=== PATIENT | female | born 1985 ===

== ENCOUNTER 2019-12-08 01:03 | Inpatient (IN) | payer OTHER, MEDICAID ==
[2019-12-08] MEDS ORDERED: TERBUTALINE 1 MG/1 ML INJ IVP PRN (01:44)
[2019-12-08] MEDS ORDERED: PROMETHAZINE 25 MG TAB PO PRN (01:44)
[2019-12-08] MEDS ORDERED: ePHEDrine SULFATE 50 MG/1 ML INJ IV PRN ×2 (01:44→15:49)
[2019-12-08] MEDS ORDERED: TERBUTALINE 1 MG/1 ML INJ SUB-Q PRN (01:44)
[2019-12-08] MEDS ORDERED: LIDOCAINE (2%) 20 MG/1 ML VIAL 20 ML MDV INFILTRATI ONE (01:44)
[2019-12-08] MEDS ORDERED: OXYTOCIN 20 UNIT/1000ML DRIP 20 UNITS/1,000 ML BAG IV SCH (02:00)
[2019-12-08] MEDS: BUTORPHANOL 2 MG/1 ML INJ IV PRN ×4 (02:58→13:57)
[2019-12-08 03:09] LABS: Hematocrit 29.6 % (30.3-42.9); Hemoglobin 9.8 gm/dl (10.1-14.3); Mean Corpuscular HGB Conc 33 % (30-34); Mean Corpuscular Volume 82 fl (79-97); Platelet Count 323 K/mm3 (140-440); Red Cell Distribution Width 13.7 % (13.2-15.2)
[2019-12-08 04:07] LABS: Amphetamine Screen,Urine PRESUMPTIVE NEGATIVE; Benzodiazepines Screen,Urine PRESUMPTIVE NEGATIVE; Cannabinoid Screen,Urine PRESUMPTIVE NEGATIVE; Cocaine Screen,Urine PRESUMPTIVE NEGATIVE; Methadone Screen,Urine PRESUMPTIVE NEGATIVE; Opiate Screen,Urine PRESUMPTIVE NEGATIVE
--- NOTE | 2019-12-08 04:19 | History and Physical Report ---
History of Present Illness Date of examination: 12/08/19 Date of admission: 12/08/19 01:45 History of present illness: Present to L&D with c/o regular contractions initial cerival exam 3.5 cm. P atient states she received uncomplicated care from Dr Street. Patient was admitted and now her cervix as advanced to 5 cm. Past History Past Medical History: no pertinent history Past Surgical History: [employer]/uterine surgery (Right salpingectomy "due to blocked tube and pain") Social history: full code - Obstetrical History : 1 Para: 0 Hx # Term Pregnancies: 0 Number of Pregnancies: 0 Spontaneous Abortions: 0 Induced : 0 Number of Living Children: 0 Medications and Allergies Allergies Allergy/AdvReac Type Severity Reaction Status Date / Time No Known Allergies Allergy Verified 12/08/19 01:59 Active Meds: Active Medications Butorphanol Tartrate (Stadol) 2 mg IV Q2H PRN PRN Reason: Pain , Severe (7-10) Last Admin: 12/08/19 02:58 Dose: 2 mg Documented by: Ephedrine Sulfate (Ephedrine Sulfate) 10 mg IV Q2M PRN PRN Reason: Hypotension Oxytocin/Sodium Chloride (Pitocin/Ns 20 Unit/1000ml Drip) 20 units in 1,000 mls @ 125 mls/hr IV DIRECT BOBY Lactated Ringer's (Lactated Ringers) 1,000 mls @ 125 mls/hr IV DIRECT BOBY Cefazolin Sodium (Ancef/Ns 1 Gm/50 Ml) 1 gm in 50 mls @ 100 mls/hr IV Q8H BOBY; Protocol Promethazine HCl (Phenergan) 25 mg PO Q6H PRN PRN Reason: Nausea And Vomiting Terbutaline Sulfate (Brethine) 0.25 mg SUB-Q ONCE PRN PRN Reason: Hyperstimulation/Hypertonicity Terbutaline Sulfate (Brethine) 0.25 mg IVP ONCE PRN PRN Reason: Hyperstimulation/Hypertonicity Review of Systems All systems: negative - Vital Signs Vital signs: Vital Signs Temp Resp 98.6 F 16 12/08/19 01:10 12/08/19 01:10 Temp Pulse Resp BP Pulse Ox 100.1 F H 100 H 20 147/92 98 12/08/19 02:07 12/08/19 04:12 12/08/19 03:45 12/08/19 03:15 12/08/19 04:12 - Physical Exam Breasts: Positive: deferred Cardiovascular: Regular rate Lungs: Positive: Normal air movement Abdomen: Positive: normal appearance, soft Cervix: Positive: other (Per RN) - Obstetrical FHR: category 1 Uterine Contraction Monitor Mode: External Uterine Contraction Pattern: Regular Uterine Tone Measurement Phase: Contraction Uterine Contraction Intensity: Strong/Firm Results Result Diagrams: 12/08/19 02:45 Abnormal lab results 12/08/19 Range/Units 02:45 WBC 19.9 H (4.5-11.0) K/mm3 RBC 3.60 L (3.65-5.03) M/mm3 Hgb 9.8 L (10.1-14.3) gm/dl Hct 29.6 L (30.3-42.9) % MCH 27 L (28-32) pg All other labs normal. Assessment and Plan - Patient Problems (1) Active labor at term Current Visit: Yes Status: Acute Plan to address problem: Patient submitted to follow routine labor and delivery protocol (2) Elevated blood pressure affecting in third trimester, antepartum Current Visit: Yes Status: Acute Plan to address problem: Patient now with elevated blood pressures possibly secondary to labor pain but due to diastolics over 110 will start magnesium sulfate and obtain PIH labs.
[2019-12-08] MEDS ORDERED: MAGNESIUM SULFATE 4 GM/100 ML BAG IV ONE (07:30)
[2019-12-08] MEDS: LACTATED RINGERS 1,000 ML IV SCH ×2 (07:43→14:00)
--- NOTE | 2019-12-08 07:49 | Progress Note ---
Assessment and Plan patient sitting upright, breathing through ctx. she denies need for epidural at this time. Discussed pros/cons AROM, pt considering options at this time. discussed elevations in blood pressure and need for additional lab work and mag sulfate. All questions addressed. requested patient sign a release for records, patient states she had her records sent to [facility] from Stefan [facility]. Pt states she has been seen twice by [facility] and they are awaiting records from [place]. explained to patient that [facility] has providers at this hospital and we will transfer her care from our services to theirs. Dr. hair made aware. Called [facility] covering [facility], report given. - Patient Problems (1) 38 weeks gestation of Current Visit: Yes Status: Acute (2) Elevated blood pressure affecting in third trimester, antepartum Current Visit: Yes Status: Acute Subjective - Subjective Date of service: 12/08/19 Principal diagnosis: 38+ weeks, laboring Patient reports: movement normal, contractions, no loss of fluid, no vaginal bleeding, no other (denies OCONNOR, visual changes or epigastric pain) Objective - Vital Signs Vital Signs: Vital Signs - 12hr 12/08/19 12/08/19 12/08/19 01:10 02:07 02:58 Temperature 98.6 F 100.1 F H Pulse Rate Respiratory 16 18 18 Rate Blood Pressure Blood Pressure [Left] O2 Sat by Pulse Oximetry 12/08/19 12/08/19 12/08/19 03:03 03:08 03:13 Temperature Pulse Rate 125 H 121 H 106 H Respiratory Rate Blood Pressure Blood Pressure [Left] O2 Sat by Pulse 98 97 95 Oximetry 12/08/19 12/08/19 12/08/19 03:15 03:18 03:19 Temperature Pulse Rate 112 H 107 H 108 H Respiratory Rate Blood Pressure 147/92 Blood Pressure [Left] O2 Sat by Pulse 96 92 Oximetry 12/08/19 12/08/19 12/08/19 03:23 03:37 03:42 Temperature Pulse Rate 103 H 117 H 107 H Respiratory Rate Blood Pressure Blood Pressure [Left] O2 Sat by Pulse 98 98 98 Oximetry 12/08/19 12/08/19 12/08/19 03:45 03:47 03:52 Temperature Pulse Rate 107 H 106 H 119 H Respiratory 20 Rate Blood Pressure Blood Pressure [Left] O2 Sat by Pulse 98 98 Oximetry 12/08/19 12/08/19 12/08/19 03:57 04:02 04:07 Temperature Pulse Rate 106 H 109 H 112 H Respiratory Rate Blood Pressure Blood Pressure [Left] O2 Sat by Pulse 96 96 97 Oximetry 12/08/19 12/08/19 12/08/19 04:12 04:17 04:22 Temperature Pulse Rate 100 H 109 H 103 H Respiratory Rate Blood Pressure Blood Pressure [Left] O2 Sat by Pulse 98 97 95 Oximetry 12/08/19 12/08/19 12/08/19 04:27 04:32 04:33 Temperature Pulse Rate 108 H 115 H 108 H Respiratory Rate Blood Pressure 151/90 Blood Pressure [Left] O2 Sat by Pulse 99 98 Oximetry 12/08/19 12/08/19 12/08/19 04:34 04:37 04:42 Temperature 98.7 F Pulse Rate 122 H 108 H 105 H Respiratory 20 Rate Blood Pressure Blood Pressure 151/90 [Left] O2 Sat by Pulse 100 97 98 Oximetry 12/08/19 12/08/19 12/08/19 04:44 04:47 04:52 Temperature Pulse Rate 114 H 113 H 118 H Respiratory Rate Blood Pressure 142/84 Blood Pressure [Left] O2 Sat by Pulse 99 99 Oximetry 12/08/19 12/08/19 12/08/19 05:03 05:08 05:13 Temperature Pulse Rate 117 H 116 H 129 H Respiratory Rate Blood Pressure Blood Pressure [Left] O2 Sat by Pulse 98 98 98 Oximetry 12/08/19 12/08/19 12/08/19 05:17 05:18 05:23 Temperature Pulse Rate 123 H 118 H 116 H Respiratory Rate Blood Pressure 138/84 Blood Pressure [Left] O2 Sat by Pulse 98 97 Oximetry 12/08/19 12/08/19 12/08/19 05:28 05:33 05:38 Temperature Pulse Rate 111 H 120 H 121 H Respiratory Rate Blood Pressure Blood Pressure [Left] O2 Sat by Pulse 99 99 97 Oximetry 12/08/19 12/08/19 12/08/19 05:43 05:45 05:48 Temperature Pulse Rate 110 H 102 H 106 H Respiratory Rate Blood Pressure 137/83 Blood Pressure [Left] O2 Sat by Pulse 98 97 Oximetry 12/08/19 12/08/19 12/08/19 05:53 06:06 06:15 Temperature Pulse Rate 114 H 106 H 112 H Respiratory 20 Rate Blood Pressure 138/85 Blood Pressure 138/85 [Left] O2 Sat by Pulse 98 96 98 Oximetry 12/08/19 12/08/19 12/08/19 06:19 06:20 06:21 Temperature Pulse Rate 115 H 117 H Respiratory 20 Rate Blood Pressure Blood Pressure [Left] O2 Sat by Pulse 94 93 Oximetry 12/08/19 12/08/19 12/08/19 06:25 06:30 06:35 Temperature Pulse Rate 109 H 111 H 112 H Respiratory Rate Blood Pressure Blood Pressure [Left] O2 Sat by Pulse 94 95 96 Oximetry 12/08/19 12/08/19 12/08/19 06:40 06:45 06:46 Temperature Pulse Rate 119 H 118 H 110 H Respiratory Rate Blood Pressure 171/101 Blood Pressure [Left] O2 Sat by Pulse 97 97 Oximetry 12/08/19 12/08/19 12/08/19 06:50 06:55 07:00 Temperature 98.8 F Pulse Rate 115 H 117 H 108 H Respiratory 18 Rate Blood Pressure 162/92 Blood Pressure [Left] O2 Sat by Pulse 99 99 99 Oximetry 12/08/19 12/08/19 12/08/19 07:05 07:10 07:15 Temperature Pulse Rate 109 H 111 H 112 H Respiratory Rate Blood Pressure Blood Pressure [Left] O2 Sat by Pulse 99 98 98 Oximetry 12/08/19 12/08/19 12/08/19 07:16 07:20 07:25 Temperature Pulse Rate 109 H 114 H 117 H Respiratory Rate Blood Pressure 173/101 Blood Pressure [Left] O2 Sat by Pulse 97 99 Oximetry 12/08/19 12/08/19 07:30 07:35 Temperature Pulse Rate 121 H 111 H Respiratory Rate Blood Pressure Blood Pressure [Left] O2 Sat by Pulse 98 99 Oximetry - Exam Breasts: normal Cardiovascular: Regular rate Lungs: Clear to auscultation, Normal air movement Abdomen: Present: normal appearance, soft Uterus: Present: normal, fundal height above umbilicus FHR: category 1 Uterine Contraction Monitor Mode: External Cervical Dilatation: 5 (by RN) Uterine Contraction Pattern: Regular Uterine Tone Measurement Phase: Contraction Uterine Contraction Intensity: Moderate Extremities: edema (1+ edema in hands and BLE) Deep Tendon Reflex Grade: Normal +2 - Labs Labs: Abnormal Labs 12/08/19 02:45 WBC 19.9 H RBC 3.60 L Hgb 9.8 L Hct 29.6 L MCH 27 L Laboratory Results - last 24 hr 12/08/19 12/08/19 12/08/19 02:45 02:45 02:45 WBC 19.9 H RBC 3.60 L Hgb 9.8 L Hct 29.6 L MCV 82 MCH 27 L MCHC 33 RDW 13.7 Plt Count 323 Urine Opiates Screen Urine Methadone Screen Ur Barbiturates Screen Ur Phencyclidine Scrn Ur Amphetamines Screen U Benzodiazepines Scrn Urine Cocaine Screen U Marijuana (THC) Screen Drugs of Abuse Note Syphilis IgG Antibody Hep Bs Antigen HIV 1&2 Antibody Rapid HIV P24 Antigen Rubella IgG Antibody Immune Blood Type O POSITIVE Antibody Screen Negative 12/08/19 12/08/19 12/08/19 02:45 02:45 02:45 WBC RBC Hgb Hct MCV MCH MCHC RDW Plt Count Urine Opiates Screen Urine Methadone Screen Ur Barbiturates Screen Ur Phencyclidine Scrn Ur Amphetamines Screen U Benzodiazepines Scrn Urine Cocaine Screen U Marijuana (THC) Screen Drugs of Abuse Note Syphilis IgG Antibody Non-reactive Hep Bs Antigen Non-reactive HIV 1&2 Antibody Rapid Non react HIV P24 Antigen Non react Rubella IgG Antibody Blood Type Antibody Screen 12/08/19 03:40 WBC RBC Hgb Hct MCV MCH MCHC RDW Plt Count Urine Opiates Screen Presumptive negative Urine Methadone Screen Presumptive negative Ur Barbiturates Screen Presumptive negative Ur Phencyclidine Scrn Presumptive negative Ur Amphetamines Screen Presumptive negative U Benzodiazepines Scrn Presumptive negative Urine Cocaine Screen Presumptive negative U Marijuana (THC) Screen Presumptive negative Drugs of Abuse Note Disclamer Syphilis IgG Antibody Hep Bs Antigen HIV 1&2 Antibody Rapid HIV P24 Antigen Rubella IgG Antibody Blood Type Antibody Screen
[2019-12-08] MEDS ORDERED: MAGNESIUM SULFATE 40GM/1000ML 40 GM/1,000 ML BAG IV SCH (08:00)
[2019-12-08] MEDS ORDERED: hydrALAZINE 20 MG/1 ML INJ IV ONE (08:00)
[2019-12-08 08:42] LABS: Alanine Aminotransferase 8 units/L (7-56)
[2019-12-08] MEDS ORDERED: AMPICILLIN/NS 2 GM/100 ML 2 GM/100 ML BAG IV ONE (09:00)
[2019-12-08] MEDS ORDERED: ceFAZolin/NS 1 GM/50 ML 1 GM/50 ML BAG IV SCH (10:00)
[2019-12-08] MEDS ORDERED: fentaNYL 100 MCG/2 ML INJ ONE (10:18)
--- NOTE | 2019-12-08 10:31 | Progress Note ---
Assessment and Plan - Patient Problems (1) Active labor at term Current Visit: Yes Status: Acute Plan to address problem: Continue expectant management D/C Ampicillin, pt is GBS negative Anticipate (2) Elevated blood pressure affecting in third trimester, antepartum Current Visit: Yes Status: Acute Plan to address problem: Continue magnesium Labetalol 20 mg IV x1 dose, repeat B/P in 10mins, if SBP>160 or DBP>110, give Labetalol 40mg IV x1 Subjective - Subjective Date of service: 12/08/19 Principal diagnosis: 38+ weeks, laboring Interval history: See admission H & P and OB progress notes Patient reports: movement normal, contractions (painful, declines AROM at this time), no loss of fluid, no vaginal bleeding, no other (denies OCONNOR, visual changes or epigastric pain) Objective - Vital Signs Vital Signs: Vital Signs - 12hr 12/08/19 12/08/19 12/08/19 01:10 02:07 02:58 Temperature 98.6 F 100.1 F H Pulse Rate Respiratory 16 18 18 Rate Blood Pressure Blood Pressure [Left] O2 Sat by Pulse Oximetry 12/08/19 12/08/19 12/08/19 03:03 03:08 03:13 Temperature Pulse Rate 125 H 121 H 106 H Respiratory Rate Blood Pressure Blood Pressure [Left] O2 Sat by Pulse 98 97 95 Oximetry 12/08/19 12/08/19 12/08/19 03:15 03:18 03:19 Temperature Pulse Rate 112 H 107 H 108 H Respiratory Rate Blood Pressure 147/92 Blood Pressure [Left] O2 Sat by Pulse 96 92 Oximetry 12/08/19 12/08/19 12/08/19 03:23 03:37 03:42 Temperature Pulse Rate 103 H 117 H 107 H Respiratory Rate Blood Pressure Blood Pressure [Left] O2 Sat by Pulse 98 98 98 Oximetry 12/08/19 12/08/19 12/08/19 03:45 03:47 03:52 Temperature Pulse Rate 107 H 106 H 119 H Respiratory 20 Rate Blood Pressure Blood Pressure [Left] O2 Sat by Pulse 98 98 Oximetry 12/08/19 12/08/19 12/08/19 03:57 04:02 04:07 Temperature Pulse Rate 106 H 109 H 112 H Respiratory Rate Blood Pressure Blood Pressure [Left] O2 Sat by Pulse 96 96 97 Oximetry 12/08/19 12/08/19 12/08/19 04:12 04:17 04:22 Temperature Pulse Rate 100 H 109 H 103 H Respiratory Rate Blood Pressure Blood Pressure [Left] O2 Sat by Pulse 98 97 95 Oximetry 12/08/19 12/08/19 12/08/19 04:27 04:32 04:33 Temperature Pulse Rate 108 H 115 H 108 H Respiratory Rate Blood Pressure 151/90 Blood Pressure [Left] O2 Sat by Pulse 99 98 Oximetry 12/08/19 12/08/19 12/08/19 04:34 04:37 04:42 Temperature 98.7 F Pulse Rate 122 H 108 H 105 H Respiratory 20 Rate Blood Pressure Blood Pressure 151/90 [Left] O2 Sat by Pulse 100 97 98 Oximetry 12/08/19 12/08/19 12/08/19 04:44 04:47 04:52 Temperature Pulse Rate 114 H 113 H 118 H Respiratory Rate Blood Pressure 142/84 Blood Pressure [Left] O2 Sat by Pulse 99 99 Oximetry 12/08/19 12/08/19 12/08/19 05:03 05:08 05:13 Temperature Pulse Rate 117 H 116 H 129 H Respiratory Rate Blood Pressure Blood Pressure [Left] O2 Sat by Pulse 98 98 98 Oximetry 12/08/19 12/08/19 12/08/19 05:17 05:18 05:23 Temperature Pulse Rate 123 H 118 H 116 H Respiratory Rate Blood Pressure 138/84 Blood Pressure [Left] O2 Sat by Pulse 98 97 Oximetry 12/08/19 12/08/19 12/08/19 05:28 05:33 05:38 Temperature Pulse Rate 111 H 120 H 121 H Respiratory Rate Blood Pressure Blood Pressure [Left] O2 Sat by Pulse 99 99 97 Oximetry 12/08/19 12/08/19 12/08/19 05:43 05:45 05:48 Temperature Pulse Rate 110 H 102 H 106 H Respiratory Rate Blood Pressure 137/83 Blood Pressure [Left] O2 Sat by Pulse 98 97 Oximetry 12/08/19 12/08/19 12/08/19 05:53 06:06 06:15 Temperature Pulse Rate 114 H 106 H 112 H Respiratory 20 Rate Blood Pressure 138/85 Blood Pressure 138/85 [Left] O2 Sat by Pulse 98 96 98 Oximetry 12/08/19 12/08/19 12/08/19 06:19 06:20 06:21 Temperature Pulse Rate 115 H 117 H Respiratory 20 Rate Blood Pressure Blood Pressure [Left] O2 Sat by Pulse 94 93 Oximetry 12/08/19 12/08/19 12/08/19 06:25 06:30 06:35 Temperature Pulse Rate 109 H 111 H 112 H Respiratory Rate Blood Pressure Blood Pressure [Left] O2 Sat by Pulse 94 95 96 Oximetry 12/08/19 12/08/19 12/08/19 06:40 06:45 06:46 Temperature Pulse Rate 119 H 118 H 110 H Respiratory Rate Blood Pressure 171/101 Blood Pressure [Left] O2 Sat by Pulse 97 97 Oximetry 12/08/19 12/08/19 12/08/19 06:50 06:55 07:00 Temperature 98.8 F Pulse Rate 115 H 117 H 108 H Respiratory 18 Rate Blood Pressure 162/92 Blood Pressure [Left] O2 Sat by Pulse 99 99 99 Oximetry 12/08/19 12/08/19 12/08/19 07:05 07:10 07:15 Temperature Pulse Rate 109 H 111 H 112 H Respiratory Rate Blood Pressure Blood Pressure [Left] O2 Sat by Pulse 99 98 98 Oximetry 12/08/19 12/08/19 12/08/19 07:16 07:20 07:25 Temperature Pulse Rate 109 H 114 H 117 H Respiratory Rate Blood Pressure 173/101 Blood Pressure [Left] O2 Sat by Pulse 97 99 Oximetry 12/08/19 12/08/19 12/08/19 07:30 07:35 07:40 Temperature Pulse Rate 121 H 111 H 119 H Respiratory Rate Blood Pressure Blood Pressure [Left] O2 Sat by Pulse 98 99 98 Oximetry 12/08/19 12/08/19 12/08/19 07:45 07:50 08:08 Temperature Pulse Rate 118 H 120 H 124 H Respiratory Rate Blood Pressure 152/91 Blood Pressure [Left] O2 Sat by Pulse 98 97 98 Oximetry 12/08/19 12/08/19 12/08/19 08:13 08:18 08:23 Temperature Pulse Rate 120 H 130 H 116 H Respiratory Rate Blood Pressure Blood Pressure [Left] O2 Sat by Pulse 98 99 98 Oximetry 12/08/19 12/08/19 12/08/19 08:28 08:30 08:33 Temperature Pulse Rate 125 H 121 H Respiratory 18 Rate Blood Pressure Blood Pressure [Left] O2 Sat by Pulse 98 98 Oximetry 12/08/19 12/08/19 12/08/19 08:38 08:43 08:45 Temperature Pulse Rate 120 H 126 H 126 H Respiratory Rate Blood Pressure 146/92 Blood Pressure [Left] O2 Sat by Pulse 97 98 Oximetry 12/08/19 12/08/19 12/08/19 08:48 08:51 08:53 Temperature Pulse Rate 129 H 129 H 125 H Respiratory Rate Blood Pressure Blood Pressure [Left] O2 Sat by Pulse 98 93 96 Oximetry 12/08/19 12/08/19 12/08/19 08:58 09:03 09:08 Temperature Pulse Rate 124 H 127 H 127 H Respiratory Rate Blood Pressure Blood Pressure [Left] O2 Sat by Pulse 98 98 97 Oximetry 12/08/19 12/08/19 12/08/19 09:13 09:16 09:18 Temperature Pulse Rate 130 H 139 H 134 H Respiratory Rate Blood Pressure 181/88 Blood Pressure [Left] O2 Sat by Pulse 98 97 Oximetry 12/08/19 12/08/19 12/08/19 09:23 09:28 09:30 Temperature Pulse Rate 122 H 154 H Respiratory 18 Rate Blood Pressure Blood Pressure [Left] O2 Sat by Pulse 98 96 Oximetry 12/08/19 12/08/19 12/08/19 09:33 09:38 09:43 Temperature Pulse Rate 140 H 131 H 125 H Respiratory Rate Blood Pressure Blood Pressure [Left] O2 Sat by Pulse 97 97 97 Oximetry 12/08/19 12/08/19 12/08/19 09:45 09:48 09:53 Temperature Pulse Rate 125 H 123 H 125 H Respiratory Rate Blood Pressure 140/81 Blood Pressure [Left] O2 Sat by Pulse 95 97 Oximetry 12/08/19 12/08/19 12/08/19 09:54 09:58 10:03 Temperature Pulse Rate 121 H 126 H 121 H Respiratory Rate Blood Pressure 146/82 Blood Pressure [Left] O2 Sat by Pulse 97 98 Oximetry 12/08/19 12/08/19 12/08/19 10:08 10:13 10:16 Temperature Pulse Rate 127 H 121 H 122 H Respiratory Rate Blood Pressure 145/107 Blood Pressure [Left] O2 Sat by Pulse 96 98 Oximetry 12/08/19 12/08/19 12/08/19 10:18 10:22 10:23 Temperature Pulse Rate 132 H 130 H 125 H Respiratory Rate Blood Pressure 147/107 Blood Pressure [Left] O2 Sat by Pulse 98 98 Oximetry - Exam Breasts: deferred Cardiovascular: Regular rate Lungs: Normal air movement Abdomen: Present: other (gravid) Uterus: Present: other (enlarged, S=D) FHR: category 1 Uterine Contraction Monitor Mode: External Cervical Dilatation: 8 (bulging bag) Cervical Effacement Percentage: 80 station: -1 Uterine Contraction Frequency (min): 2-4 Uterine Contraction Pattern: Irregular Uterine Tone Measurement Phase: Resting Uterine Contraction Intensity: Moderate Extremities: normal Deep Tendon Reflex Grade: Normal +2 - Labs Labs: Abnormal Labs 12/08/19 12/08/19 02:45 07:48 WBC 19.9 H RBC 3.60 L Hgb 9.8 L Hct 29.6 L MCH 27 L Creatinine 0.5 L Laboratory Results - last 24 hr 12/08/19 12/08/19 12/08/19 02:45 02:45 02:45 WBC 19.9 H RBC 3.60 L Hgb 9.8 L Hct 29.6 L MCV 82 MCH 27 L MCHC 33 RDW 13.7 Plt Count 323 Creatinine Estimated GFR AST ALT Urine Opiates Screen Urine Methadone Screen Ur Barbiturates Screen Ur Phencyclidine Scrn Ur Amphetamines Screen U Benzodiazepines Scrn Urine Cocaine Screen U Marijuana (THC) Screen Drugs of Abuse Note Syphilis IgG Antibody Hep Bs Antigen HIV 1&2 Antibody Rapid HIV P24 Antigen Rubella IgG Antibody Immune Blood Type O POSITIVE Antibody Screen Negative 12/08/19 12/08/19 12/08/19 02:45 02:45 02:45 WBC RBC Hgb Hct MCV MCH MCHC RDW Plt Count Creatinine Estimated GFR AST ALT Urine Opiates Screen Urine Methadone Screen Ur Barbiturates Screen Ur Phencyclidine Scrn Ur Amphetamines Screen U Benzodiazepines Scrn Urine Cocaine Screen U Marijuana (THC) Screen Drugs of Abuse Note Syphilis IgG Antibody Non-reactive Hep Bs Antigen Non-reactive HIV 1&2 Antibody Rapid Non react HIV P24 Antigen Non react Rubella IgG Antibody Blood Type Antibody Screen 12/08/19 12/08/19 03:40 07:48 WBC RBC Hgb Hct MCV MCH MCHC RDW Plt Count Creatinine 0.5 L Estimated GFR > 60 AST 12 ALT 8 Urine Opiates Screen Presumptive negative Urine Methadone Screen Presumptive negative Ur Barbiturates Screen Presumptive negative Ur Phencyclidine Scrn Presumptive negative Ur Amphetamines Screen Presumptive negative U Benzodiazepines Scrn Presumptive negative Urine Cocaine Screen Presumptive negative U Marijuana (THC) Screen Presumptive negative Drugs of Abuse Note Disclamer Syphilis IgG Antibody Hep Bs Antigen HIV 1&2 Antibody Rapid HIV P24 Antigen Rubella IgG Antibody Blood Type Antibody Screen
[2019-12-08] MEDS ORDERED: MINERAL OIL 30 ML ORAL LIQD ONE (11:36)
--- NOTE | 2019-12-08 12:38 | Event Note ---
Date: 12/08/19 (0260) AROM @ 1231 per pt request. Clear fluids, tolerated well.
[2019-12-08] MEDS ORDERED: fentaNYL 100 MCG/2 ML INJ IV ONE (13:00)
[2019-12-08] MEDS ORDERED: AMPICILLIN/NS 1 GM/50 ML 1 GM/50 ML BAG IV SCH (13:00)
[2019-12-08] MEDS ORDERED: DEXMEDETOMIDINE 200 MCG/2 ML VIAL IV ONE (15:19)
--- NOTE | 2019-12-08 15:47 | Anesthesia Consultation ---
Anesthesia Consult and Med Hx Date of service: 12/08/19 - Airway Anesthetic Teeth Evaluation: Good ROM Head & Neck: Adequate Mental/Hyoid Distance: Adequate Mallampati Class: Class II Intubation Access Assessment: Good - Pulmonary Exam CTA: Yes - Cardiac Exam Cardiac Exam: RRR - Pre-Operative Health Status ASA Pre-Surgery Classification: ASA2, Emergency Proposed Anesthetic Plan: Epidural, Spinal - Pulmonary Hx Asthma: No - Cardiovascular System Hx Hypertension: No - Central Nervous System Hx Seizures: No Hx Psychiatric Problems: No - Endocrine Hx Renal Disease: No Hx Hypothyroidism: No Hx Hyperthyroidism: No - Hematic Hx Anemia: No Hx Sickle Cell Disease: No
[2019-12-08] MEDS ORDERED: NALOXONE 2 MG/2 ML INJ IV PRN (15:49)
--- NOTE | 2019-12-08 15:49 | Progress Note ---
Labor Epidural - Labor Epidural Start Time: 15:24 Stop Time: 15:29 Performed by:: GEMA CARDENAS Procedure: Patient is requesting a laboring epidural for laboring pain. Patient IDed, H&P reviewed, all questions and concerns were answered, and consent was signed. Timeout was performed at bedside. Patient in sitting position. Sterile prep and drape was performed. [3] ml of 1% lidocaine skin wheal at L[3]- L [4]. 18- gauge Touhy epidural needle was advanced to loss of resistance with air technique. Negative CSF negative blood. Epidural catheter advanced to [15] centimeters. [-] Aspiration [-] test dose. Sterile dressing applied. Patient tolerated procedure.
[2019-12-08] MEDS ORDERED: fentaNYL-BUPIV 2 MCG/ML-0.125% 200 MCG/100 ML BAG EPIDURAL SCH (16:00)
[2019-12-08] MEDS ORDERED: OXYTOCIN DRIP 30,000 MILLIUNITS/500 ML BAG IV ONE (16:21)
--- NOTE | 2019-12-08 16:38 | Progress Note ---
Assessment and Plan - Patient Problems (1) Active labor at term Current Visit: Yes Status: Acute Plan to address problem: Initiate Pitocin drip @ 2mu/min Anticipate (2) Elevated blood pressure affecting in third trimester, antepartum Current Visit: Yes Status: Acute Plan to address problem: Continue magnesium Continue B/P monitoring Subjective - Subjective Date of service: 12/08/19 Principal diagnosis: 38+ weeks, laboring Interval history: See admission H & P and OB progress notes Patient reports: loss of fluid (clear fluids), vaginal bleeding (small amt of bloody show), movement normal, contractions (painful, declines AROM at this time), other (more comfortable with epidural, but is able to feel ctxs) Objective - Vital Signs Vital Signs: Vital Signs - 12hr 12/08/19 12/08/19 12/08/19 04:34 04:37 04:42 Temperature 98.7 F Pulse Rate 122 H 108 H 105 H Respiratory 20 Rate Blood Pressure Blood Pressure 151/90 [Left] O2 Sat by Pulse 100 97 98 Oximetry 12/08/19 12/08/19 12/08/19 04:44 04:47 04:52 Temperature Pulse Rate 114 H 113 H 118 H Respiratory Rate Blood Pressure 142/84 Blood Pressure [Left] O2 Sat by Pulse 99 99 Oximetry 12/08/19 12/08/19 12/08/19 05:03 05:08 05:13 Temperature Pulse Rate 117 H 116 H 129 H Respiratory Rate Blood Pressure Blood Pressure [Left] O2 Sat by Pulse 98 98 98 Oximetry 12/08/19 12/08/19 12/08/19 05:17 05:18 05:23 Temperature Pulse Rate 123 H 118 H 116 H Respiratory Rate Blood Pressure 138/84 Blood Pressure [Left] O2 Sat by Pulse 98 97 Oximetry 12/08/19 12/08/19 12/08/19 05:28 05:33 05:38 Temperature Pulse Rate 111 H 120 H 121 H Respiratory Rate Blood Pressure Blood Pressure [Left] O2 Sat by Pulse 99 99 97 Oximetry 12/08/19 12/08/19 12/08/19 05:43 05:45 05:48 Temperature Pulse Rate 110 H 102 H 106 H Respiratory Rate Blood Pressure 137/83 Blood Pressure [Left] O2 Sat by Pulse 98 97 Oximetry 12/08/19 12/08/19 12/08/19 05:53 06:06 06:15 Temperature Pulse Rate 114 H 106 H 112 H Respiratory 20 Rate Blood Pressure 138/85 Blood Pressure 138/85 [Left] O2 Sat by Pulse 98 96 98 Oximetry 12/08/19 12/08/19 12/08/19 06:19 06:20 06:21 Temperature Pulse Rate 115 H 117 H Respiratory 20 Rate Blood Pressure Blood Pressure [Left] O2 Sat by Pulse 94 93 Oximetry 12/08/19 12/08/19 12/08/19 06:25 06:30 06:35 Temperature Pulse Rate 109 H 111 H 112 H Respiratory Rate Blood Pressure Blood Pressure [Left] O2 Sat by Pulse 94 95 96 Oximetry 12/08/19 12/08/19 12/08/19 06:40 06:45 06:46 Temperature Pulse Rate 119 H 118 H 110 H Respiratory Rate Blood Pressure 171/101 Blood Pressure [Left] O2 Sat by Pulse 97 97 Oximetry 12/08/19 12/08/19 12/08/19 06:50 06:55 07:00 Temperature 98.8 F Pulse Rate 115 H 117 H 108 H Respiratory 18 Rate Blood Pressure 162/92 Blood Pressure [Left] O2 Sat by Pulse 99 99 99 Oximetry 12/08/19 12/08/19 12/08/19 07:05 07:10 07:15 Temperature Pulse Rate 109 H 111 H 112 H Respiratory Rate Blood Pressure Blood Pressure [Left] O2 Sat by Pulse 99 98 98 Oximetry 12/08/19 12/08/19 12/08/19 07:16 07:20 07:25 Temperature Pulse Rate 109 H 114 H 117 H Respiratory Rate Blood Pressure 173/101 Blood Pressure [Left] O2 Sat by Pulse 97 99 Oximetry 12/08/19 12/08/19 12/08/19 07:30 07:35 07:40 Temperature Pulse Rate 121 H 111 H 119 H Respiratory Rate Blood Pressure Blood Pressure [Left] O2 Sat by Pulse 98 99 98 Oximetry 12/08/19 12/08/19 12/08/19 07:45 07:50 08:08 Temperature Pulse Rate 118 H 120 H 124 H Respiratory Rate Blood Pressure 152/91 Blood Pressure [Left] O2 Sat by Pulse 98 97 98 Oximetry 12/08/19 12/08/19 12/08/19 08:13 08:18 08:23 Temperature Pulse Rate 120 H 130 H 116 H Respiratory Rate Blood Pressure Blood Pressure [Left] O2 Sat by Pulse 98 99 98 Oximetry 12/08/19 12/08/19 12/08/19 08:28 08:30 08:33 Temperature Pulse Rate 125 H 121 H Respiratory 18 Rate Blood Pressure Blood Pressure [Left] O2 Sat by Pulse 98 98 Oximetry 12/08/19 12/08/19 12/08/19 08:38 08:43 08:45 Temperature Pulse Rate 120 H 126 H 126 H Respiratory Rate Blood Pressure 146/92 Blood Pressure [Left] O2 Sat by Pulse 97 98 Oximetry 12/08/19 12/08/19 12/08/19 08:48 08:51 08:53 Temperature Pulse Rate 129 H 129 H 125 H Respiratory Rate Blood Pressure Blood Pressure [Left] O2 Sat by Pulse 98 93 96 Oximetry 12/08/19 12/08/19 12/08/19 08:58 09:03 09:08 Temperature Pulse Rate 124 H 127 H 127 H Respiratory Rate Blood Pressure Blood Pressure [Left] O2 Sat by Pulse 98 98 97 Oximetry 12/08/19 12/08/19 12/08/19 09:13 09:16 09:18 Temperature Pulse Rate 130 H 139 H 134 H Respiratory Rate Blood Pressure 181/88 Blood Pressure [Left] O2 Sat by Pulse 98 97 Oximetry 12/08/19 12/08/19 12/08/19 09:23 09:28 09:30 Temperature Pulse Rate 122 H 154 H Respiratory 18 Rate Blood Pressure Blood Pressure [Left] O2 Sat by Pulse 98 96 Oximetry 12/08/19 12/08/19 12/08/19 09:33 09:38 09:43 Temperature Pulse Rate 140 H 131 H 125 H Respiratory Rate Blood Pressure Blood Pressure [Left] O2 Sat by Pulse 97 97 97 Oximetry 12/08/19 12/08/19 12/08/19 09:45 09:48 09:53 Temperature Pulse Rate 125 H 123 H 125 H Respiratory Rate Blood Pressure 140/81 Blood Pressure [Left] O2 Sat by Pulse 95 97 Oximetry 12/08/19 12/08/19 12/08/19 09:54 09:58 10:03 Temperature Pulse Rate 121 H 126 H 121 H Respiratory Rate Blood Pressure 146/82 Blood Pressure [Left] O2 Sat by Pulse 97 98 Oximetry 12/08/19 12/08/19 12/08/19 10:08 10:13 10:16 Temperature Pulse Rate 127 H 121 H 122 H Respiratory Rate Blood Pressure 145/107 Blood Pressure [Left] O2 Sat by Pulse 96 98 Oximetry 12/08/19 12/08/19 12/08/19 10:18 10:22 10:23 Temperature Pulse Rate 132 H 130 H 125 H Respiratory Rate Blood Pressure 147/107 Blood Pressure [Left] O2 Sat by Pulse 98 98 Oximetry 12/08/19 12/08/19 12/08/19 10:28 10:33 10:34 Temperature Pulse Rate 111 H 109 H 107 H Respiratory Rate Blood Pressure 138/75 Blood Pressure [Left] O2 Sat by Pulse 98 98 Oximetry 12/08/19 12/08/19 12/08/19 10:38 10:43 10:48 Temperature Pulse Rate 109 H 110 H 112 H Respiratory Rate Blood Pressure 132/74 Blood Pressure [Left] O2 Sat by Pulse 98 97 97 Oximetry 12/08/19 12/08/19 12/08/19 10:53 10:58 11:03 Temperature Pulse Rate 110 H 110 H 113 H Respiratory Rate Blood Pressure 127/71 Blood Pressure [Left] O2 Sat by Pulse 98 97 98 Oximetry 12/08/19 12/08/19 12/08/19 11:05 11:08 11:13 Temperature Pulse Rate 108 H 113 H 109 H Respiratory Rate Blood Pressure 130/71 Blood Pressure [Left] O2 Sat by Pulse 99 97 Oximetry 12/08/19 12/08/19 12/08/19 11:14 11:18 11:23 Temperature Pulse Rate 109 H 118 H 111 H Respiratory Rate Blood Pressure 134/75 135/80 Blood Pressure [Left] O2 Sat by Pulse 98 98 Oximetry 12/08/19 12/08/19 12/08/19 11:28 11:31 11:33 Temperature Pulse Rate 63 110 H 108 H Respiratory Rate Blood Pressure 121/61 Blood Pressure [Left] O2 Sat by Pulse 95 93 95 Oximetry 12/08/19 12/08/19 12/08/19 11:38 11:43 11:48 Temperature Pulse Rate 117 H 112 H 116 H Respiratory Rate Blood Pressure 125/64 Blood Pressure [Left] O2 Sat by Pulse 97 96 98 Oximetry 12/08/19 12/08/19 12/08/19 11:53 11:58 12:00 Temperature 97.7 F Pulse Rate 112 H 114 H Respiratory 18 Rate Blood Pressure 142/74 Blood Pressure [Left] O2 Sat by Pulse 96 98 Oximetry 12/08/19 12/08/19 12/08/19 12:03 12:08 12:13 Temperature Pulse Rate 111 H 112 H 110 H Respiratory Rate Blood Pressure 144/76 149/81 Blood Pressure [Left] O2 Sat by Pulse 97 98 98 Oximetry 12/08/19 12/08/19 12/08/19 12:18 12:23 12:24 Temperature Pulse Rate 113 H 111 H 109 H Respiratory Rate Blood Pressure Blood Pressure [Left] O2 Sat by Pulse 97 97 90 Oximetry 12/08/19 12/08/19 12/08/19 12:25 12:28 12:33 Temperature Pulse Rate 108 H 114 H 119 H Respiratory Rate Blood Pressure 134/82 Blood Pressure [Left] O2 Sat by Pulse 99 98 Oximetry 12/08/19 12/08/19 12/08/19 12:35 12:38 12:43 Temperature Pulse Rate 113 H 113 H 116 H Respiratory Rate Blood Pressure 162/94 144/79 Blood Pressure [Left] O2 Sat by Pulse 98 98 Oximetry 12/08/19 12/08/19 12/08/19 12:47 12:48 12:53 Temperature Pulse Rate 113 H 113 H 111 H Respiratory Rate Blood Pressure 146/77 Blood Pressure [Left] O2 Sat by Pulse 93 98 97 Oximetry 12/08/19 12/08/19 12/08/19 12:58 13:03 13:04 Temperature Pulse Rate 114 H 117 H 111 H Respiratory Rate Blood Pressure 143/82 Blood Pressure [Left] O2 Sat by Pulse 99 99 Oximetry 12/08/19 12/08/19 12/08/19 13:08 13:13 13:18 Temperature Pulse Rate 115 H 110 H 113 H Respiratory Rate Blood Pressure 167/86 Blood Pressure [Left] O2 Sat by Pulse 99 98 98 Oximetry 12/08/19 12/08/19 12/08/19 13:22 13:23 13:25 Temperature Pulse Rate 110 H 114 H 115 H Respiratory Rate Blood Pressure 163/93 Blood Pressure [Left] O2 Sat by Pulse 91 100 Oximetry 12/08/19 12/08/19 12/08/19 13:28 13:33 13:34 Temperature Pulse Rate 114 H 108 H 108 H Respiratory Rate Blood Pressure 142/85 Blood Pressure [Left] O2 Sat by Pulse 99 97 91 Oximetry 12/08/19 12/08/19 12/08/19 13:38 13:43 13:44 Temperature Pulse Rate 113 H 111 H 107 H Respiratory Rate Blood Pressure 147/85 Blood Pressure [Left] O2 Sat by Pulse 99 97 93 Oximetry 12/08/19 12/08/19 12/08/19 13:48 13:53 13:55 Temperature Pulse Rate 117 H 118 H 111 H Respiratory Rate Blood Pressure 142/82 Blood Pressure [Left] O2 Sat by Pulse 98 99 Oximetry 12/08/19 12/08/19 12/08/19 13:58 14:03 14:08 Temperature Pulse Rate 113 H 116 H 112 H Respiratory Rate Blood Pressure 138/72 Blood Pressure [Left] O2 Sat by Pulse 100 90 98 Oximetry 12/08/19 12/08/19 12/08/19 14:10 14:13 14:16 Temperature Pulse Rate 114 H 106 H 113 H Respiratory Rate Blood Pressure 138/71 Blood Pressure [Left] O2 Sat by Pulse 93 94 89 Oximetry 12/08/19 12/08/19 12/08/19 14:18 14:21 14:23 Temperature Pulse Rate 118 H 111 H 111 H Respiratory Rate Blood Pressure Blood Pressure [Left] O2 Sat by Pulse 98 88 97 Oximetry 12/08/19 12/08/19 12/08/19 14:25 14:28 14:33 Temperature Pulse Rate 106 H 108 H 109 H Respiratory Rate Blood Pressure 153/79 Blood Pressure [Left] O2 Sat by Pulse 83 L 98 Oximetry 12/08/19 12/08/19 12/08/19 14:35 14:38 14:42 Temperature Pulse Rate 114 H 110 H 111 H Respiratory Rate Blood Pressure 149/92 Blood Pressure [Left] O2 Sat by Pulse 94 96 91 Oximetry 12/08/19 12/08/19 12/08/19 14:43 14:45 14:48 Temperature Pulse Rate 114 H 112 H 117 H Respiratory Rate Blood Pressure 149/88 Blood Pressure [Left] O2 Sat by Pulse 98 99 Oximetry 12/08/19 12/08/19 12/08/19 14:50 14:53 14:55 Temperature Pulse Rate 110 H 112 H 103 H Respiratory Rate Blood Pressure 140/78 Blood Pressure [Left] O2 Sat by Pulse 91 94 Oximetry 05/12/20 05/12/20 05/12/20 14:57 14:58 15:03 Temperature Pulse Rate 107 H 116 H 119 H Respiratory Rate Blood Pressure Blood Pressure [Left] O2 Sat by Pulse 86 90 98 Oximetry 12/08/19 12/08/19 12/08/19 15:04 15:08 15:13 Temperature Pulse Rate 115 H 120 H 126 H Respiratory Rate Blood Pressure 171/97 Blood Pressure [Left] O2 Sat by Pulse 99 97 Oximetry 12/08/19 12/08/19 12/08/19 15:14 15:18 15:23 Temperature Pulse Rate 123 H 115 H 119 H Respiratory Rate Blood Pressure 181/109 176/101 Blood Pressure [Left] O2 Sat by Pulse 98 98 Oximetry 12/08/19 12/08/19 12/08/19 15:26 15:28 15:33 Temperature Pulse Rate 114 H 119 H 105 H Respiratory Rate Blood Pressure Blood Pressure [Left] O2 Sat by Pulse 93 98 95 Oximetry 12/08/19 12/08/19 12/08/19 15:34 15:36 15:38 Temperature Pulse Rate 111 H 105 H 107 H Respiratory Rate Blood Pressure 129/67 Blood Pressure [Left] O2 Sat by Pulse 94 96 Oximetry 12/08/19 12/08/19 12/08/19 15:43 15:48 15:51 Temperature Pulse Rate 103 H 102 H 93 H Respiratory Rate Blood Pressure 115/55 Blood Pressure [Left] O2 Sat by Pulse 97 95 94 Oximetry 12/08/19 12/08/19 12/08/19 15:53 15:54 15:58 Temperature Pulse Rate 93 H 93 H 94 H Respiratory Rate Blood Pressure 88/44 Blood Pressure [Left] O2 Sat by Pulse 95 95 Oximetry 12/08/19 12/08/19 12/08/19 16:00 16:03 16:05 Temperature Pulse Rate 96 H 99 H 92 H Respiratory Rate Blood Pressure 80/39 102/57 Blood Pressure [Left] O2 Sat by Pulse 99 Oximetry 12/08/19 12/08/19 12/08/19 16:08 16:13 16:18 Temperature Pulse Rate 98 H 94 H 91 H Respiratory Rate Blood Pressure 95/53 Blood Pressure [Left] O2 Sat by Pulse 100 99 99 Oximetry 12/08/19 12/08/19 16:23 16:28 Temperature Pulse Rate 99 H 90 Respiratory Rate Blood Pressure 106/55 Blood Pressure [Left] O2 Sat by Pulse 98 99 Oximetry - Exam Breasts: deferred Cardiovascular: Regular rate Lungs: Normal air movement FHR: category 1, other (some early decelerations) Uterine Contraction Monitor Mode: External Cervical Dilatation: 9.5 (anterior lip) Cervical Effacement Percentage: 90 station: +1 Uterine Contraction Frequency (min): 2-4 Uterine Contraction Pattern: Irregular Uterine Tone Measurement Phase: Resting Uterine Contraction Intensity: Strong/Firm Extremities: normal Deep Tendon Reflex Grade: Normal +2 - Labs Labs: Abnormal Labs 12/08/19 12/08/19 02:45 07:48 WBC 19.9 H RBC 3.60 L Hgb 9.8 L Hct 29.6 L MCH 27 L Creatinine 0.5 L Laboratory Results - last 24 hr 12/08/19 12/08/19 12/08/19 02:45 02:45 02:45 WBC 19.9 H RBC 3.60 L Hgb 9.8 L Hct 29.6 L MCV 82 MCH 27 L MCHC 33 RDW 13.7 Plt Count 323 Creatinine Estimated GFR AST ALT Urine Opiates Screen Urine Methadone Screen Ur Barbiturates Screen Ur Phencyclidine Scrn Ur Amphetamines Screen U Benzodiazepines Scrn Urine Cocaine Screen U Marijuana (THC) Screen Drugs of Abuse Note Syphilis IgG Antibody Hep Bs Antigen HIV 1&2 Antibody Rapid HIV P24 Antigen Rubella IgG Antibody Immune Blood Type O POSITIVE Antibody Screen Negative 12/08/19 12/08/19 12/08/19 02:45 02:45 02:45 WBC RBC Hgb Hct MCV MCH MCHC RDW Plt Count Creatinine Estimated GFR AST ALT Urine Opiates Screen Urine Methadone Screen Ur Barbiturates Screen Ur Phencyclidine Scrn Ur Amphetamines Screen U Benzodiazepines Scrn Urine Cocaine Screen U Marijuana (THC) Screen Drugs of Abuse Note Syphilis IgG Antibody Non-reactive Hep Bs Antigen Non-reactive HIV 1&2 Antibody Rapid Non react HIV P24 Antigen Non react Rubella IgG Antibody Blood Type Antibody Screen 12/08/19 12/08/19 03:40 07:48 WBC RBC Hgb Hct MCV MCH MCHC RDW Plt Count Creatinine 0.5 L Estimated GFR > 60 AST 12 ALT 8 Urine Opiates Screen Presumptive negative Urine Methadone Screen Presumptive negative Ur Barbiturates Screen Presumptive negative Ur Phencyclidine Scrn Presumptive negative Ur Amphetamines Screen Presumptive negative U Benzodiazepines Scrn Presumptive negative Urine Cocaine Screen Presumptive negative U Marijuana (THC) Screen Presumptive negative Drugs of Abuse Note Disclamer Syphilis IgG Antibody Hep Bs Antigen HIV 1&2 Antibody Rapid HIV P24 Antigen Rubella IgG Antibody Blood Type Antibody Screen
[2019-12-08] MEDS ORDERED: OXYTOCIN DRIP 30 UNITS/500 ML BAG IV SCH (17:00)
[2019-12-08] MEDS ORDERED: diphenhydrAMINE 25 MG CAP PO PRN (20:38)
[2019-12-08] MEDS ORDERED: MAGNESIUM HYDROXIDE (MOM) ORAL LIQD UDC PO PRN (20:38)
[2019-12-08] MEDS ORDERED: WITCH HAZEL/ GLYCERIN PAD TP PRN (20:38)
[2019-12-08] MEDS ORDERED: ONDANSETRON 4 MG/2 ML INJ IV PRN (20:38)
[2019-12-08] MEDS ORDERED: BENZOCAINE/MENTHOL 20/0.5% TOP SPRAY 56 GM TP PRN (20:38)
[2019-12-08] MEDS ORDERED: LANOLIN/ZINC/DIMETHICONE (LANSINOH) 7 GM TP PRN (20:38)
--- NOTE | 2019-12-08 20:46 | Procedure Note ---
OB Delivery Note - Delivery Date of Delivery: 12/08/19 (2001) Surgeon: BECKY GTZ (CNM) Estimated blood loss: 300cc - Vaginal Delivery presentation: vertex Delivery position: OA (ANTHONY) Delivery induction: none Delivery augmentation: rupture of membranes (AROM -1233, clear fluids) Delivery monitor: external FHT, external uterine Route of delivery: Delivery placenta: spontaneous Delivery cord: nuchal cord (x1, reduced at perineum), 3 umbilical vessels Delivery laceration: 1st degree Delivery repair: vicryl (3.0- SH) Anesthesia: epidural Delivery comments: of viable, crying female , placed directly to maternal abdomen. Cord double clamped, cut by FOB after cessation of pulsation. Cord blood collected, sent to lab. Placenta spontaneously delivered, disposed per hospital policy. Uterus firm @ U-2. Perineum with 1st degree laceration, repaired. Mother and baby safe, stable and bonding well. Left in care of RN. - A at 1 minute: 8 at 5 minutes: 9 Gender: Female (Weight: 3130 gms (6lbs 14.4ozs) 19 inches)
[2019-12-08] MEDS ORDERED: MINERAL OIL 30 ML ORAL LIQD PO PRN (22:00)
[2019-12-09] MEDS: oxyCODONE /ACETAMINOPHEN 5-325MG TAB PO PRN ×2 (00:14→10:15)
[2019-12-09] MEDS: PRENATAL VIT27-FE FUMARATE-FOLIC ACID VIT TAB PO SCH (10:06)
[2019-12-09] MEDS: IBUPROFEN 600 MG TAB PO SCH ×3 (10:07→22:45)
[2019-12-09] MEDS: FERROUS SULFATE 325 MG TAB PO SCH ×2 (10:07→22:46)
[2019-12-09 10:59] LABS: Hematocrit 23.7 % (30.3-42.9); Hemoglobin 7.9 gm/dl (10.1-14.3)
--- NOTE | 2019-12-09 11:27 | Progress Note ---
Assessment and Plan A: PP Day #1 Preeclampsia Asymptomatic Anemia P: Continue Routine Orders FeSO4 325mg PO BID Infed 100mg IM x 1 Dose Continue MagSO4 2G/Hourly until 8PM Subjective - Subjective Date of service: 12/09/19 Principal diagnosis: 38+ weeks, laboring Patient reports: appetite normal, voiding normally (means in place), pain well controlled, flatus, other (Denies N&V, dizziness, visual disturbances, and epigastic pain; Admits to mild HAs on and off) [place]: doing well Objective - Vital Signs Latest vital signs: Vital Signs Temp Pulse Resp BP BP Pulse Ox 12/09/19 11:17 101 H 98 12/09/19 11:12 102 H 98 12/09/19 11:07 108 H 97 12/09/19 11:04 106 H 131/68 12/09/19 11:02 103 H 97 12/09/19 10:57 106 H 98 12/09/19 10:52 110 H 97 12/09/19 10:47 109 H 98 12/09/19 10:42 107 H 98 12/09/19 10:37 103 H 98 12/09/19 10:34 103 H 124/78 12/09/19 10:32 107 H 98 12/09/19 10:27 106 H 98 12/09/19 10:22 109 H 99 12/09/19 10:17 111 H 98 12/09/19 10:12 113 H 97 12/09/19 10:07 112 H 97 12/09/19 10:05 110 H 147/83 12/09/19 10:02 113 H 98 12/09/19 09:57 117 H 98 12/09/19 09:52 100 H 96 12/09/19 09:47 105 H 97 12/09/19 09:42 105 H 96 12/09/19 09:37 107 H 97 12/09/19 09:34 105 H 120/65 12/09/19 09:32 104 H 97 12/09/19 09:27 105 H 97 12/09/19 09:22 106 H 97 12/09/19 09:17 104 H 96 12/09/19 09:12 104 H 95 12/09/19 09:07 107 H 97 12/09/19 09:04 105 H 118/65 12/09/19 09:02 111 H 98 12/09/19 08:58 111 H 90 12/09/19 08:57 109 H 97 12/09/19 08:52 104 H 98 12/09/19 08:47 114 H 97 12/09/19 08:42 111 H 98 12/09/19 08:37 112 H 99 12/09/19 08:34 107 H 117/60 12/09/19 08:32 110 H 98 12/09/19 08:27 114 H 115/61 98 12/09/19 08:25 98.1 F 110 H 16 115/61 96 12/09/19 08:21 106 H 96 12/09/19 08:16 105 H 97 12/09/19 08:11 104 H 97 12/09/19 08:06 106 H 96 12/09/19 08:04 106 H 115/60 12/09/19 08:01 112 H 96 12/09/19 07:56 109 H 97 12/09/19 07:51 108 H 96 12/09/19 07:46 112 H 97 12/09/19 07:41 110 H 96 12/09/19 07:36 108 H 96 12/09/19 07:35 108 H 112/56 12/09/19 07:31 106 H 96 12/09/19 07:26 111 H 96 12/09/19 07:21 110 H 97 12/09/19 07:16 113 H 95 12/09/19 07:11 110 H 97 12/09/19 07:06 109 H 97 12/09/19 07:05 111 H 111/55 12/09/19 07:01 111 H 96 12/09/19 06:56 114 H 96 12/09/19 06:51 114 H 96 12/09/19 06:46 111 H 97 12/09/19 06:41 111 H 96 12/09/19 06:36 119 H 99 12/09/19 06:34 115 H 120/63 12/09/19 06:31 118 H 97 12/09/19 06:26 114 H 97 12/09/19 06:21 116 H 96 12/09/19 06:16 116 H 96 12/09/19 06:11 115 H 96 12/09/19 06:06 113 H 97 12/09/19 06:04 116 H 125/59 12/09/19 06:01 114 H 96 05 05:56 118 H 97 12/09/19 05:51 116 H 97 12/09/19 05:46 115 H 96 12/09/19 05:41 115 H 97 12/09/19 05:36 114 H 98 12/09/19 05:35 116 H 127/58 12/09/19 05:31 114 H 98 12/09/19 05:26 114 H 98 12/09/19 05:21 113 H 98 12/09/19 05:16 114 H 98 12/09/19 05:11 115 H 97 12/09/19 05:06 114 H 98 12/09/19 05:05 115 H 115/55 12/09/19 05:01 117 H 97 12/09/19 04:56 114 H 97 12/09/19 04:51 121 H 98 12/09/19 04:46 118 H 100 12/09/19 04:41 127 H 98 12/09/19 04:36 116 H 99 12/09/19 04:34 114 H 120/65 12/09/19 04:31 121 H 96 12/09/19 04:26 125 H 99 12/09/19 04:21 125 H 98 12/09/19 04:16 120 H 98 12/09/19 04:11 121 H 99 12/09/19 04:07 117 H 125/65 12/09/19 04:06 117 H 99 12/09/19 04:01 122 H 98 12/09/19 03:56 120 H 97 12/09/19 03:51 122 H 98 12/09/19 03:46 123 H 97 12/09/19 03:41 122 H 97 12/09/19 03:34 127 H 127/69 05 03:29 131 H 98 12/09/19 03:24 121 H 97 12/09/19 03:19 122 H 99 12/09/19 03:14 120 H 98 12/09/19 03:09 123 H 98 12/09/19 03:04 120 H 134/72 99 12/09/19 02:59 122 H 99 12/09/19 02:54 121 H 97 12/09/19 02:49 119 H 98 12/09/19 02:44 121 H 98 12/09/19 02:39 119 H 99 12/09/19 02:34 125 H 127/62 97 12/09/19 02:29 127 H 97 12/09/19 02:24 129 H 97 12/09/19 02:19 125 H 97 12/09/19 02:14 125 H 98 12/09/19 02:09 127 H 97 12/09/19 02:04 127 H 131/63 95 12/09/19 01:59 130 H 97 12/09/19 01:54 128 H 97 12/09/19 01:49 127 H 97 12/09/19 01:44 126 H 97 12/09/19 01:39 126 H 97 12/09/19 01:34 128 H 118/62 96 12/09/19 01:29 120 H 96 12/09/19 01:24 120 H 96 12/09/19 01:19 119 H 96 12/09/19 01:14 119 H 95 12/09/19 01:09 120 H 96 12/09/19 01:04 124 H 118/57 96 12/09/19 00:59 119 H 96 12/09/19 00:54 117 H 96 12/09/19 00:49 112 H 97 12/09/19 00:44 121 H 97 12/09/19 00:39 115 H 96 12/09/19 00:34 121 H 131/71 98 12/09/19 00:29 120 H 98 12/09/19 00:24 124 H 99 12/09/19 00:19 119 H 99 12/09/19 00:14 119 H 99 12/09/19 00:09 119 H 98 12/09/19 00:04 112 H 132/73 100 12/08/19 23:59 115 H 93 12/08/19 23:54 117 H 99 12/08/19 23:49 116 H 97 12/08/19 23:44 115 H 98 12/08/19 23:39 111 H 96 12/08/19 23:34 120 H 126/72 98 12/08/19 23:29 114 H 97 12/08/19 23:24 113 H 97 12/08/19 23:19 111 H 97 12/08/19 23:14 113 H 98 12/08/19 23:09 117 H 99 12/08/19 23:04 114 H 135/73 100 05//20 22:59 117 H 99 05 22:54 117 H 99 05 22:49 117 H 100 05 22:44 113 H 99 12/08/19 22:39 114 H 98 05 22:34 121 H 135/79 98 12/08/19 22:29 118 H 100 05 22:24 118 H 99 05 22:19 117 H 100 05 22:14 115 H 100 12/08/19 22:09 119 H 99 12/08/19 22:04 115 H 133/77 98 12/08/19 21:59 120 H 99 05 21:54 114 H 100 12/08/19 21:49 113 H 100 12/08/19 21:44 111 H 99 12/08/19 21:39 113 H 98 12/08/19 21:34 115 H 131/77 98 12/08/19 21:29 113 H 98 12/08/19 21:24 113 H 100 12/08/19 21:19 114 H 100 12/08/19 21:14 114 H 99 12/08/19 21:09 113 H 98 12/08/19 21:04 112 H 134/73 99 12/08/19 20:59 117 H 99 12/08/19 20:54 116 H 100 12/08/19 20:49 129 H 99 12/08/19 20:44 117 H 98 12/08/19 20:39 120 H 96 12/08/19 20:35 117 H 139/65 05 20:34 123 H 98 12/08/19 20:29 121 H 100 0520 20:24 120 H 99 0520 20:19 121 H 99 0520 20:14 119 H 98 12/08/19 20:09 119 H 99 05 20:05 125 H 156/69 05 20:04 124 H 97 05 19:59 133 H 98 12/08/19 19:54 126 H 98 12/08/19 19:50 80 L 12/08/19 19:49 114 H 97 12/08/19 19:44 108 H 97 12/08/19 19:39 110 H 99 05 19:35 102 H 128/71 05 19:34 103 H 96 05 19:29 102 H 95 05 19:24 107 H 99 05 19:19 105 H 100 05 19:14 102 H 100 05 19:09 100 H 100 05 19:06 96 H 122/73 05 19:04 100 H 100 05 18:59 104 H 100 05 18:54 100 H 100 05 18:49 98 H 100 05 18:44 104 H 100 05 18:39 100 H 100 05 18:34 98 H 126/74 100 05 18:29 98 H 100 12/08/19 18:24 97 H 100 05 18:19 104 H 100 05 18:14 96 H 100 12/08/19 18:09 107 H 100 12/08/19 18:04 107 H 100 12/08/19 18:00 98.1 F 22 12/08/19 17:59 101 H 99 12/08/19 17:54 101 H 100 12/08/19 17:49 102 H 99 12/08/19 17:44 99 H 99 12/08/19 17:39 103 H 100 12/08/19 17:35 104 H 136/62 05 17:34 99 H 99 12/08/19 17:29 93 H 100 12/08/19 17:24 105 H 99 12/08/19 17:19 101 H 99 12/08/19 17:14 95 H 99 12/08/19 17:09 87 99 05 17:07 97 H 125/56 12/08/19 17:04 100 H 98 05 16:59 89 95 05 16:54 87 99 05 16:49 90 99 0520 16:44 96 H 99 05 16:39 94 H 99 05 16:34 98 H 107/51 99 05 16:28 90 99 05 16:23 99 H 106/55 98 05 16:18 91 H 99 12/08/19 16:13 94 H 95/53 99 12/08/19 16:08 98 H 100 12/08/19 16:05 92 H 102/57 12/08/19 16:03 99 H 99 12/08/19 16:00 96 H 80/39 12/08/19 15:58 94 H 95 12/08/19 15:54 93 H 88/44 12/08/19 15:53 93 H 95 12/08/19 15:51 93 H 94 12/08/19 15:48 102 H 95 12/08/19 15:43 103 H 115/55 97 12/08/19 15:38 107 H 96 12/08/19 15:36 105 H 94 12/08/19 15:34 111 H 129/67 12/08/19 15:33 105 H 95 12/08/19 15:28 119 H 98 12/08/19 15:26 114 H 93 12/08/19 15:23 119 H 176/101 98 12/08/19 15:18 115 H 98 12/08/19 15:14 123 H 181/109 12/08/19 15:13 126 H 97 12/08/19 15:08 120 H 99 12/08/19 15:04 115 H 171/97 12/08/19 15:03 119 H 98 12/08/19 14:58 116 H 90 12/08/19 14:57 107 H 86 12/08/19 14:55 103 H 140/78 12/08/19 14:53 112 H 94 12/08/19 14:50 110 H 91 12/08/19 14:48 117 H 99 12/08/19 14:45 112 H 149/88 12/08/19 14:43 114 H 98 12/08/19 14:42 111 H 91 12/08/19 14:38 110 H 96 12/08/19 14:35 114 H 149/92 94 12/08/19 14:33 109 H 98 12/08/19 14:28 108 H 83 L 12/08/19 14:25 106 H 153/79 12/08/19 14:23 111 H 97 12/08/19 14:21 111 H 88 12/08/19 14:18 118 H 98 12/08/19 14:16 113 H 89 05/12/20 14:13 106 H 138/71 94 05 14:10 114 H 93 05 14:08 112 H 98 05 14:03 116 H 138/72 90 05 13:58 113 H 100 05 13:55 111 H 142/82 05 13:53 118 H 99 05 13:48 117 H 98 12/08/19 13:44 107 H 93 05 13:43 111 H 147/85 97 05 13:38 113 H 99 05 13:34 108 H 91 05 13:33 108 H 142/85 97 05 13:28 114 H 99 05 13:25 115 H 163/93 05 13:23 114 H 100 05 13:22 110 H 91 05 13:18 113 H 98 12/08/19 13:13 110 H 167/86 98 12/08/19 13:08 115 H 99 12/08/19 13:04 111 H 143/82 05 13:03 117 H 99 12/08/19 12:58 114 H 99 05 12:53 111 H 146/77 97 12/08/19 12:48 113 H 98 05 12:47 113 H 93 12/08/19 12:43 116 H 144/79 98 05 12:38 113 H 98 05 12:35 113 H 162/94 05 12:33 119 H 98 05 12:28 114 H 99 05 12:25 108 H 134/82 0520 12:24 109 H 90 05 12:23 111 H 97 05 12:18 113 H 97 05 12:13 110 H 149/81 98 05 12:08 112 H 98 05 12:03 111 H 144/76 97 05 12:00 97.7 F 18 12/08/19 11:58 114 H 98 05 11:53 112 H 142/74 96 05 11:48 116 H 98 12/08/19 11:43 112 H 125/64 96 12/08/19 11:38 117 H 97 12/08/19 11:33 108 H 121/61 95 12/08/19 11:31 110 H 93 12/08/19 11:28 63 95 Intake and Output 12/08/19 12/09/19 12/09/19 22:59 06:59 14:59 Intake Total 4.466 Output Total 1250 2100 850 Balance -1245.534 -2099 -850 Intake: IV 4.466 PITOCin/NS 30 UNIT/500ML 4.466 30 units In 500 ml @ 2 MILLIUNITS/MIN 2 mls/hr IV TITR BOBY Rx#:[id number] Output: Urine 1250 2100 850 Indwelling Catheter 1250 2100 850 Other: Total, Output Amount 200 300 450 Estimated Blood Loss 300 - Exam Breasts: Present: normal Cardiovascular: Present: Regular rate Lungs: Present: Clear to auscultation, Normal air movement Abdomen: Present: normal appearance, soft, normal bowel sounds Uterus: Present: normal, firm, fundal height below umbilicus Extremities: Present: normal - Labs Labs: Abnormal lab results 12/08/19 12/09/19 12/09/19 Range/Units 17:41 00:41 10:47 Hgb 7.9 L (10.1-14.3) gm/dl Hct 23.7 L (30.3-42.9) % Magnesium 6.20 H 5.50 H (1.7-2.3) mg/dL
[2019-12-09] MEDS ORDERED: IRON DEXTRAN COMPLEX 100 MG/2 ML INJ IM ONE (11:45)
[2019-12-09] MEDS ORDERED: PRENATAL VIT27-FE FUMARATE-FOLIC ACID VIT TAB PO SCH (12:00)
--- NOTE | 2019-12-09 14:00 | Post Anesthesia Evaluation ---
- Post Anesthesia Evaluation Patient Participated: Yes Airway Patent: Yes Stable Respiratory Function: Yes Nausea/Vomiting: No Temp > 96.8F: Yes Pain Manageable: Yes Adequeate Hydration: Yes Anesthesia Complications: No Block Receding Appropriately: Yes Patient on Ventilator: No
[2019-12-09] MEDS: LACTATED RINGERS 1,000 ML IV SCH (16:49)
[2019-12-10] MEDS: IBUPROFEN 600 MG TAB PO SCH ×2 (05:23→12:49)
[2019-12-10] MEDS: PRENATAL VIT27-FE FUMARATE-FOLIC ACID VIT TAB PO SCH (09:50)
[2019-12-10] MEDS: FERROUS SULFATE 325 MG TAB PO SCH (10:00)
--- NOTE | 2019-12-10 10:48 | Progress Note ---
Assessment and Plan - Patient Problems (1) Status post normal vaginal delivery Current Visit: Yes Status: Acute Plan to address problem: PPD 2 - stable Continue routine orders Discharge to home later today Follow[facility]up at [facility] as needed or in 1 week for blood pressure check (2) Single live Current Visit: Yes Status: Acute (3) Pre-eclampsia Current Visit: Yes Status: Acute Qualifiers: Trimester: third trimester Qualified Code(s): O14.93 - Unspecified pre- eclampsia, third trimester Plan to address problem: Asymptomatic - BPs stable s/p Magnesium sulfate therapy Not on any antihypertensive due to normal BPs (4) Anemia due to blood loss, acute Current Visit: Yes Status: Acute Plan to address problem: Asymptomatic but mild tachycardia noted s/p Infed 100mg IM x1 Continue ferrous sulfate 325mg PO BID Subjective - Subjective Date of service: 12/10/19 Principal diagnosis: PPD #2; s/p ; Pre-eclampsia Interval history: see [facility] - H&P, OB Progress Notes, Event Note, OB Delivery Procedure Note and PP/[employer] Progress Note Patient reports: appetite normal, voiding normally, pain well controlled, bowel movement, ambulating normally, other (denies headache, visual disturbances, RUQ pain, SOB or palpitations), no dizzy ambulation [place]: doing well, nursing well Objective - Vital Signs Latest vital signs: Vital Signs Temp Pulse Resp BP BP Pulse Ox 12/10/19 08:31 98.1 F 107 H 20 118/73 97 12/10/19 06:10 98.0 F 102 H 18 120/78 97 12/10/19 01:58 98.7 F 107 H 18 117/71 98 12/09/19 21:37 99.3 F 116 H 18 127/71 97 12/09/19 21:10 119 H 100 12/09/19 21:05 113 H 98 12/09/19 21:04 112 H 130/75 12/09/19 21:00 111 H 99 12/09/19 20:55 115 H 99 12/09/19 20:50 114 H 98 12/09/19 20:45 115 H 99 12/09/19 20:40 117 H 99 12/09/19 20:35 113 H 98 12/09/19 20:34 113 H 135/77 12/09/19 20:30 114 H 97 05/13/20 20:25 115 H 98 05/13/20 20:20 121 H 98 05/13/20 20:15 106 H 97 05/13/20 20:10 112 H 98 05/13/20 20:05 109 H 98 05/13/20 20:04 107 H 134/83 05//20 20:00 108 H 97 05/13/20 19:55 111 H 98 05//20 19:50 102 H 98 05/13/20 19:45 111 H 98 05/13/20 19:40 108 H 98 05/13/20 19:35 109 H 98 05/13/20 19:34 109 H 137/71 05//20 19:30 111 H 97 05//20 19:25 109 H 98 05/13/20 19:20 112 H 98 05/13/20 19:15 98.0 F 113 H 16 99 05//20 19:10 106 H 98 05/13/20 19:06 105 H 94 05/13/20 19:05 103 H 96 05/20 19:04 98 H 131/77 05//20 19:00 105 H 100 05/13/20 18:55 102 H 100 05/13/20 18:50 106 H 100 05/13/20 18:45 107 H 99 05/13/20 18:40 110 H 98 05/13/20 18:35 110 H 99 05//20 18:34 107 H 129/73 05//20 18:30 105 H 100 05/13/20 18:25 111 H 98 05/13/20 18:20 114 H 98 05/13/20 18:15 105 H 98 05/13/20 18:10 108 H 98 05/13/20 18:05 106 H 98 05/13/20 18:04 103 H 120/71 05/13/20 18:00 107 H 98 05/13/20 17:55 107 H 97 05/13/20 17:50 109 H 97 05/13/20 17:45 109 H 98 05/13/20 17:40 110 H 98 05/13/20 17:35 109 H 97 05/13/20 17:34 104 H 120/70 05/13/20 17:30 108 H 97 05/13/20 17:25 106 H 97 05/13/20 17:20 108 H 98 05/13/20 17:15 111 H 99 05/13/20 17:10 112 H 98 05//20 17:05 110 H 121/69 98 05//20 17:00 110 H 99 05//20 16:55 109 H 99 05//20 16:50 111 H 99 05/13/20 16:45 105 H 100 05//20 16:43 109 H 92 05/20 16:40 110 H 99 05//20 16:35 106 H 100 05//20 16:34 104 H 129/75 05//20 16:30 107 H 99 05//20 16:25 105 H 99 05//20 16:20 104 H 98 05/20 16:15 108 H 98 05/20 16:10 106 H 98 05/20 16:05 109 H 98 05/20 16:04 105 H 131/76 05/ 16:00 108 H 97 05/20 15:55 100 H 97 05/20 15:50 99 H 97 05//20 15:45 103 H 99 05//20 15:40 105 H 99 05//20 15:35 109 H 98 05/20 15:34 107 H 126/60 05//20 15:30 108 H 99 05//20 15:25 97 H 98 05/13/20 15:20 101 H 100 05/13/20 15:15 105 H 99 05//20 15:10 107 H 98 05//20 15:05 104 H 98 05/13/20 15:04 107 H 118/67 05/20 15:00 115 H 98 05/13/20 14:55 109 H 98 05/13/20 14:50 109 H 99 05/13/20 14:45 113 H 98 05/13/20 14:40 109 H 98 05//20 14:35 111 H 98 05//20 14:34 107 H 126/73 05//20 14:30 114 H 97 05/13/20 14:17 115 H 99 05/13/20 14:15 112 H 94 05/13/20 14:12 109 H 100 05/13/20 14:07 107 H 100 05/13/20 14:04 107 H 132/77 05/13/20 14:02 112 H 98 05/13/20 13:57 107 H 99 05/13/20 13:52 107 H 100 05//20 13:47 107 H 98 05/13/20 13:42 110 H 98 05/13/20 13:37 109 H 99 05//20 13:34 108 H 126/72 05/13/20 13:32 109 H 98 05/13/20 13:27 103 H 98 05/13/20 13:22 101 H 97 05/13/20 13:17 103 H 98 05/13/20 13:12 97 H 97 05/13/20 13:07 99 H 96 05/1320 13:05 94 H 114/62 05//20 13:02 97 H 96 05/13/20 12:57 100 H 97 05/13/20 12:52 98 H 98 05/13/20 12:47 106 H 98 05/13/20 12:42 96 H 98 05/13/20 12:37 101 H 98 05/13/20 12:35 99 H 115/69 05/13/20 12:32 101 H 99 05/13/20 12:27 99 H 98 05/13/20 12:22 102 H 97 05/13/20 12:17 104 H 97 05/13/20 12:12 107 H 98 05/13/20 12:07 104 H 98 05/13/20 12:04 99 H 124/80 05/13/20 12:02 105 H 98 05/13/20 11:57 100 H 98 05/13/20 11:56 100 H 118/75 05/13/20 11:55 97.9 F 104 H 16 118/75 98 05/13/20 11:52 99 H 99 05/13/20 11:47 102 H 97 05/13/20 11:42 105 H 97 05/13/20 11:37 105 H 97 05/13/20 11:34 106 H 120/73 05/13/20 11:32 103 H 98 05/13/20 11:27 101 H 98 05/13/20 11:22 103 H 98 05/13/20 11:17 101 H 98 05/13/20 11:12 102 H 98 05/13/20 11:07 108 H 97 12/09/19 11:04 106 H 131/68 12/09/19 11:02 103 H 97 12/09/19 10:57 106 H 98 12/09/19 10:52 110 H 97 12/09/19 10:47 109 H 98 Intake and Output 12/09/19 12/10/19 12/10/19 23:59 07:59 15:59 Intake Total 200 Output Total 1050 450 Balance -850 -450 Intake: Oral 200 Output: Urine 1050 450 Indwelling Catheter 450 Void 600 450 Other: Total, Intake Amount 200 Total, Output Amount 300 150 # Voids Void 1 - Exam Cardiovascular: Present: Regular rate Lungs: Present: Clear to auscultation Abdomen: Present: normal appearance, soft Vulva: both: laceration/episiotomy (well approximated) Uterus: Present: normal, firm, fundal height below umbilicus Extremities: Present: normal Deep Tendon Reflex Grade: Normal +2 Comments: scant lochia - Labs Labs: Abnormal lab results 12/09/19 12/09/19 12/09/19 Range/Units 10:47 10:47 18:49 Hgb 7.9 L (10.1-14.3) gm/dl Hct 23.7 L (30.3-42.9) % Magnesium 5.90 H 6.40 H (1.7-2.3) mg/dL
--- NOTE | 2019-12-10 10:52 | Discharge Summary ---
Providers - Providers Date of Admission: 12/08/19 01:45 Date of discharge: 12/10/19 Attending physician: JORGE L OTTO MD Primary care physician: BARB LUNA MD Hospitalization Reason for admission: IUP at term, other (pre-eclampsia) Delivery: Episiotomy: none Laceration: 1st degree Other procedures: none complications: none Discharge diagnosis: IUP at term delivered baby: female Hospital course: complicated by pre-eclampsia Condition at discharge: Stable Disposition: DC-01 TO HOME OR SELFCARE - Discharge Diagnoses (1) Status post normal vaginal delivery Status: Acute (2) Single live Status: Acute (3) Pre-eclampsia Status: Acute Qualifiers: Trimester: third trimester Qualified Code(s): O14.93 - Unspecified pre- eclampsia, third trimester (4) Anemia due to blood loss, acute Status: Acute Comment: Asymptomatic Continue ferrous sulfate 325mg by mouth twice daily Eat iron-rich foods Plan - Discharge Medications Prescriptions: Ferrous Sulfate [Feosol 325 MG tab] 325 mg PO BID #60 tablet - Provider Discharge Summary Activity: routine, no sex for 6 weeks, no heavy lifting 4 weeks, no strenuous exercise Diet: routine Instructions: routine Additional instructions: [] Smoking cessation referral if applicable(refer to patient education folder for contact #) [] Refer to [facility]'s [facility] Booklet Call your doctor immediately for: * Fever > 100.5 * Heavy vaginal bleeding ( >1 pad per hour) * Severe persistent headache * Shortness of breath * Reddened, hot, painful area to leg or breast * Drainage or odor from incision. * Keep incision clean and dry at all times and follow doctor's instructions regarding bathing/showering - Follow up plan Follow up: PRIMARY CARE, [Primary Care Provider] - 7 Days (Follow-up at [facility] as needed or in 1 week for blood pressure check.)
[2019-12-10 16:22] VITALS: BP 135/72
== END 2019-12-10 16:30 | disposition home or self-care (01) | DRG 806 ==
LOC: TRG 01:03 → LD 01:45 → OB 12-09 22:07
PROVIDERS: ADMIT Obstetrics & Gynecology; ATTEND Obstetrics & Gynecology
PROC: 10E0XZZ Delivery of Products of Conception, External Approach (ICD-10-PCS; principal; 2019-12-08)
PROC: 0HQ9XZZ Repair Perineum Skin, External Approach (ICD-10-PCS; 2019-12-08)
PROC: 10907ZC Drainage of Amniotic Fluid, Therapeutic from Products of Conception, Via Natural or Artificial Opening (ICD-10-PCS; 2019-12-08)
PROC: 3E0R3BZ Introduction of Anesthetic Agent into Spinal Canal, Percutaneous Approach (ICD-10-PCS; 2019-12-08)
PROC: 00HU33Z Insertion of Infusion Device into Spinal Canal, Percutaneous Approach (ICD-10-PCS; 2019-12-08)
DX: O14.94 Unspecified pre-eclampsia, complicating childbirth (principal); D62 Acute posthemorrhagic anemia; Z37.0 Single live birth; O69.81X0 Labor and delivery complicated by cord around neck, without compression, not applicable or unspecified; O70.0 First degree perineal laceration during delivery; O99.02 Anemia complicating childbirth; Z3A.38 38 weeks gestation of pregnancy
CPT/HCPCS: 36415; 59025; 80307; 82565; 83735; 84450; 84460; 85014; 85018; 85027; 86592; 86706; 86762; 86850; 86900; 86901; 87806; G0378; J0290; J0595; J0690; J1750; J2590; J3010; J3475; J3490; J7120